=== PATIENT | female | born 1960 | race Caucasian/White ===

== ENCOUNTER 2017-07-27 08:40 | Outpatient (CLI) | payer BC ==
--- NOTE | 2017-07-27 12:21 | MMO ---
BILATERAL SCREENING MAMMOGRAMS: DATE: 07/27/17 No prior comparisons. Interpreted as baseline exam. This patient's mammogram was interpreted with the assistance of computer-aided detection. FINDINGS: There are scattered fibroglandular elements within each breast. There is no evidence of a dominant m ass, suspicious clustering of microcalcification, or architectural distortion. There is a benign-fernando earing punctate calcification within the right breast. There are scattered small masses bilaterally, indicative of lymph nodes. There is also a left axillary lymph node. IMPRESSION: BIRADS 2: Benign Finding(s) Annual screening mammography is recommended. POS: SAMIR
== END 2017-07-27 08:41 | disposition home or self-care (01) ==
LOC: SCSMAMMO 08:40
PROVIDERS: ATTEND Family Medicine
DX: Z12.31 Encounter for screening mammogram for malignant neoplasm of breast (principal)
CPT/HCPCS: 77067; G0202

== ENCOUNTER 2018-09-11 08:14 | Outpatient (CLI) | payer BC ==
--- NOTE | 2018-09-11 12:19 | MMO ---
BILATERAL SCREENING MAMMOGRAM: COMPARISON: Reference is made to a 07/27/2017 screening mammogram. FINDINGS: There are scattered fibroglandular elements bilaterally. There are benign appearing punctate calcifi cations within the breasts bilaterally. There is a small, new, asymmetric density seen anteriorly, w ithin the slightly inner left breast on the CC view, not confirmed on MLO imaging. The exam is interpreted with the assistance of CAD. IMPRESSION: BI-RADS 0-Incomplete. Additional imaging evaluation is recommended. Recommend follow-up diagnostic left mammogram to [facility] evaluate asymmetric density of the anterior slightly inner left breast, seen only on the CC view. As necessary, ultrasound may also prove useful. POS: SAMIR
== END 2018-09-11 08:15 | disposition home or self-care (01) ==
LOC: SCSMAMMO 08:14
PROVIDERS: ATTEND Family Medicine
DX: Z12.31 Encounter for screening mammogram for malignant neoplasm of breast (principal)
CPT/HCPCS: 77067

== ENCOUNTER 2018-10-12 09:29 | Outpatient (CLI) | payer BC | END 2018-10-12 09:30 | disposition home or self-care (01) | LOC: BICMAMMO 09:29 | PROVIDERS: ATTEND Family Medicine | DX: R92.2 Inconclusive mammogram (principal) | CPT/HCPCS: G0279 ==

== ENCOUNTER 2020-10-07 07:43 | Outpatient (CLI) | payer BC ==
--- NOTE | 2020-10-07 09:23 | ULT ---
CLINICAL HISTORY: Acute renal failure. STUDY: Renal ultrasound and renal artery ultrasound COMPARISON: None. TECHNIQUE: Multiplanar grayscale and color Doppler images were obtained in a renal ultrasound. Spectr al analysis of the Doppler waveforms of the aorta and renal arteries were performed. FINDINGS: Right kidney: Echogenicity: Normal. Masses/cysts: None. Hydronephrosis: None. Calcifications: None. Length: 10.5 cm Left kidney: Echogenicity: Normal. Masses/cysts: None. Hydronephrosis: None. Calcifications: None. Length: 10.3 cm Limited visualization of the urinary bladder is unremarkable. Peak systolic velocity in the aorta: 98 cm/s Peak systolic velocity in the right renal artery: 230 cm/s. Right renal artery to aortic ratio: 2.4 Peak systolic velocity in the left renal artery: 79 cm/s. Left renal artery to aortic ratio: 0.8 IMPRESSION: 1. Unremarkable renal ultrasound 2. There is a high velocity in the right renal artery but the aortic to renal artery ratio is still l ess than 3 and this is likely not hemodynamically significant.
== END 2020-10-07 07:44 | disposition home or self-care (01) ==
LOC: BICULT 07:43
PROVIDERS: ATTEND Internal Medicine Nephrology
DX: N17.9 Acute kidney failure, unspecified (principal)
CPT/HCPCS: 76770; 93975

== ENCOUNTER 2021-09-30 09:53 | Outpatient (CLI) | payer BC ==
[2021-09-30 18:50] LABS: SARS-CoV-2 PCR by NAA Not Detected (NotDetected)
== END 2021-09-30 09:54 | disposition home or self-care (01) ==
LOC: LABBT 09:53
PROVIDERS: ATTEND Surgery
DX: Z01.818 Encounter for other preprocedural examination (principal); K40.90 Unilateral inguinal hernia, without obstruction or gangrene, not specified as recurrent; Z20.822 Contact with and (suspected) exposure to COVID-19
CPT/HCPCS: 93005; 93010; U0003; U0005

== ENCOUNTER 2021-10-05 07:38 | Day surgery (SDC) | payer BC ==
[2021-10-01 14:44] VITALS: BMI 26.6
[2021-10-05] MEDS ORDERED: ceFAZolin 2 GM/DEX 5% 100 ML BAG ONE (08:09)
[2021-10-05] MEDS ORDERED: Bupivacaine 0.25% 10 ML VIAL ONE (09:06)
[2021-10-05] MEDS ORDERED: Lidocaine 1% w/Epinephrine 1:100K 20 ML VIAL ONE (09:06)
[2021-10-05] MEDS ORDERED: Fentanyl 250 MCG/5 ML VIAL ONE (09:12)
[2021-10-05] MEDS ORDERED: Midazolam HCl 2 mg/2 ml Vial ONE (09:14)
[2021-10-05] MEDS ORDERED: Dexamethasone 20 MG/5 ML VIAL ONE (09:21)
[2021-10-05] MEDS ORDERED: Phenylephrine 10 MG/ML VIAL ONE (09:21)
[2021-10-05] MEDS ORDERED: ePHEDrine 50 MG/ML VIAL ONE (09:21)
[2021-10-05] MEDS ORDERED: Ondansetron PF 4 MG/2 ML Vial ONE (09:21)
[2021-10-05] MEDS ORDERED: Glycopyrrolate 0.2 MG/ML 5 ML SYRINGE ONE (09:21)
[2021-10-05] MEDS ORDERED: Rocuronium Bromide 10 MG/ML (10ML VIAL) ONE (09:21)
[2021-10-05] MEDS ORDERED: Lidocaine 1% PF 5 ML VIAL ONE (09:21)
[2021-10-05] MEDS ORDERED: PROPOFOL 200 MG/20 ML VIAL ONE (09:21)
[2021-10-05] MEDS ORDERED: Fentanyl 100 MCG/2 ML VIAL ONE (10:51)
[2021-10-05] MEDS ORDERED: HYDROcodone/Acetaminophen 5/325 mg Tablet ONE (11:32)
== END 2021-10-05 12:18 | disposition home or self-care (01) ==
LOC: SDC 07:38
PROVIDERS: ATTEND Surgery
PROC: 0YU54JZ Supplement Right Inguinal Region with Synthetic Substitute, Percutaneous Endoscopic Approach (ICD-10-PCS; principal; 2021-10-05)
DX: K40.90 Unilateral inguinal hernia, without obstruction or gangrene, not specified as recurrent (principal); I10 Essential (primary) hypertension; Z87.891 Personal history of nicotine dependence; Z79.899 Other long term (current) drug therapy
CPT/HCPCS: C1713; J1100; J2250; J2370; J2405; J2704; J3010; J3490; S0020

== ENCOUNTER 2023-04-07 05:54 | Day surgery (SDC) | payer BC ==
[2023-04-04 08:56] VITALS: BMI 26.9
[2023-04-07] MEDS ORDERED: Midazolam HCl 2 mg/2 ml Vial ONE (07:00)
[2023-04-07] MEDS ORDERED: fentaNYL 50 mcg/mL 1 mL Vial ONE ×3 (07:00→09:03)
[2023-04-07] MEDS ORDERED: Bupivacaine/Epinephrine 0.25% 30 ML VIAL ONE (07:04)
[2023-04-07] MEDS ORDERED: Lidocaine 2% PF 5 ML VIAL ONE (07:07)
[2023-04-07] MEDS ORDERED: Sodium Chloride 0.9% 100 ML ONE (07:24)
[2023-04-07] MEDS ORDERED: CEFAZOLIN 2 GM VIAL ONE (07:24)
[2023-04-07] MEDS ORDERED: Lidocaine 1% PF 5 ML VIAL ONE (07:37)
[2023-04-07] MEDS ORDERED: Dexamethasone 20 MG/5 ML VIAL ONE (07:37)
[2023-04-07] MEDS ORDERED: PROPOFOL 200 MG/20 ML VIAL ONE (07:37)
[2023-04-07] MEDS ORDERED: Ondansetron PF 4 MG/2 ML Vial ONE (07:37)
[2023-04-07] MEDS ORDERED: Ropivacaine 0.5% HCl/PF (150 MG/30 ML VIAL) ONE (07:39)
[2023-04-07] MEDS ORDERED: PROPOFOL 20 ML ONE (07:39)
== END 2023-04-07 10:35 | disposition home or self-care (01) ==
LOC: SDC 05:54
PROVIDERS: ATTEND Orthopaedic Surgery
PROC: 0SBC4ZZ Excision of Right Knee Joint, Percutaneous Endoscopic Approach (ICD-10-PCS; principal; 2023-04-07)
DX: S83.231A Complex tear of medial meniscus, current injury, right knee, initial encounter (principal); S83.241A Other tear of medial meniscus, current injury, right knee, initial encounter; S83.281A Other tear of lateral meniscus, current injury, right knee, initial encounter; X58.XXXA Exposure to other specified factors, initial encounter; Z87.891 Personal history of nicotine dependence; Z86.010 Personal history of colon polyps
CPT/HCPCS: J1100; J2001; J2250; J2405; J2704; J2795; J3010; J3490